=== PATIENT | female | born 1980 | race Caucasian/White ===

== ENCOUNTER 2024-04-14 19:39 | Emergency (ER) | payer OTHER, SELFPAY ==
[2024-04-14 19:49] VITALS: BP 117/73; PULSE 86; RESP 16; TEMP 36.6; O2SAT 100; BMI 28.3
--- NOTE | 2024-04-14 20:05 | ED.UPPEXIN ---
HPI - Extremity Injury (Upper) General Time Seen by Provider: 20:05 Date Seen: 04/14/24 Chief Complaint: Extremity Pain/Injury, Upper Stated Complaint: tendonitis Time Seen by Provider: 04/14/24 19:39 Source: patient and RN notes reviewed Mode of arrival: ambulatory Limitations: no limitations History of Present Illness HPI narrative: This 44-year-old female is coming to the ER with right elbow pain. She has pain both on the inside and outside. She has had a history of tendinitis. She has been wearing an elbow strap but it does not seem to be helping. 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 No numbness tingling. No pain into the wrist. No trauma noted. complaint: injury to: right Related Data Previous Rx's ?Medication ?Instructions ?Recorded naproxen 500 mg tablet 500 mg PO BID #20 tabs 04/14/24 Review of Systems Narrative: As per HPI. PFSH PFSH Social History Smoking Status: Current every day smoker What tobacco products do you use: cigarettes Do you use any of these nicotine containing products: None Second hand tobacco smoke exposure: No How often do you have a drink containing alcohol: 2-4 times a month How many standard drinks containing alcohol do you have on a typical day: 1 or 2 AUDIT-C Alcohol total score: 2 Non-prescribed substance use: denies use service: No Exam Const: Vital Signs, click to edit/add: Vital Signs - 24 hr 04/14/24 19:49 Temperature 97.8 F Pulse Rate [Right Radial] 86 Respiratory Rate 16 Blood Pressure [Le ft Upper Arm] 117/73 Pulse Oximetry 100 Oxygen Delivery Me thod Room Air This 44-year-old female is alert, interactive, no apparent distress. On inspection of her right arm, no noted swelling, ecchymosis or rash. She has full range of motion about the shoulder, full flexion extension supination pronation at the elbow. Wrist is fully mobile. Hand bridge saw operator strength is 5/5 and symmetric. She has 5/5 preserved wrist flexion and extension but the resisted wrist extension does give her increased pain over the lateral epicondyle. She has some point tenderness over both the medial and lateral epicondyle although she is definitely more tender and painful with examination over the lateral portion of the elbow. Bicipital groove nontender, can palpate the biceps tendon, resisted biceps testing does not cause her significant discomfort. Neurovascular is intact. Documenting provider has reviewed patient's vital signs: yes Course Course ED Course: Discussed with Kiera that she certainly seems to have component of both medial and lateral epicondylitis or golfer's and tennis elbow respectively. She needs to continue wearing the elbow strap. We do not have these here and thus I am glad she has 1. Will pull her off work tonight and tomorrow night. We discussed that it is the repetitive activity without appropriate rest that is causing the tendinitis. She very well should go to physical therapy as they can help resolve this, will need to get a referral from her primary care provider or clinic she goes to. Will give her scheduled course of NSAIDs. She needs to minimize activities that are bothersome, also recommend ice. Vital Signs Vital signs: Initial Vital Signs Temperature 97.8 F 04/14/24 19:49 Temperature Source Temporal Artery Scan 04/14/24 19:49 Pulse Rate 86 04/14/24 19:49 Pulse Rhythm Regular 04/14/24 19:49 Respiratory Rate 16 04/14/24 19:49 Blood Pressure 117/73 04/14/24 19:49 Blood Pressure Mean 87 04/14/24 19:49 Pulse Oximetry 100 04/14/24 19:49 Oxygen Delivery Method Room Air 04/14/24 19:49 Vital Signs Temperature 97.8 F 04/14/24 19:49 Pulse Rate 86 04/14/24 19:49 Respiratory Rate 16 04/14/24 19:49 Blood Pressure 117/73 04/14/24 19:49 Pulse Oximetry 100 04/14/24 19:49 Oxygen Delivery Method Room Air 04/14/24 19:49 Temperature 97.8 F 04/14/24 19:49 Pulse Rate 86 04/14/24 19:49 Respiratory Rate 16 04/14/24 19:49 Blood Pressure 117/73 04/14/24 19:49 Pulse Oximetry 100 04/14/24 19:49 Oxygen Delivery Method Room Air 04/14/24 19:49 Discharge Plan Discharge Clinical Impression: Right tennis elbow, Golfers elbow of right upper extremity Patient Disposition: Home, Self-Care Condition: Stable Instructions: Tennis Elbow (ED) Additional Instructions: Continue wearing the elbow strap. You do need to get scheduled for a clinic follow-up next week and get a referral to physical therapy. Can try ice to help decrease pain. Have written a course of NSAIDs for you, please pick them up from the pharmacy and take as prescribed, recommend taking with food to protect your stomach. Can also use Tylenol 1000 mg 3 times a day for additional pain control. Need to limit activities that are causing the ongoing overuse syndrome of your elbow. Recommend minimizing lifting at this point, no repetitive use of the elbow that aggravates your symptoms. May ultimately need to see orthopedics if conservative management is not helping, referral would have to come through clinic. Activity Level: Activity as Tolerated Prescriptions: New naproxen 500 mg tablet 500 mg PO BID Qty: 20 0RF Follow Up/Referrals: Karis Raya MD [Primary Care Provider] - Stand Alone Forms: [employer] Info Instructions
== END 2024-04-14 21:00 | disposition home or self-care (01) ==
LOC: ED 20:36
PROVIDERS: Emergency Provider Family Medicine; PCP Family Medicine
DX: M77.01 Medial epicondylitis, right elbow (principal)
CPT/HCPCS: 99282; 99283

== ENCOUNTER 2024-11-04 10:27 | Emergency (ER) | payer OTHER, SELFPAY ==
--- OUTSIDE RECORDS SUMMARY | 2024-11-04 10:29 | XMS_ITS | Encounter Summary ---
Author Organization [facility] Address [address], [place] [address] Care Team Providers Care Plant Pathology Teacher Name Role Phone No Primary/Referring, Phy Primary Care Provider Unavailable Encounter Details Date Type Department Care Team (Late st Contact Info) Description 07/01/2012 Consent for Procedure/Treatme nt [facility] Department INFORMED CONSENT RECORD Social History Tobacco Use Types Packs/Day Years Used Date Smoking Tobacco: Every Day Cigarettes Smokeless Tobacco: Never Alcohol Use Standard Drinks/Week Comments Not Asked 0 (1 standard drink = 0.6 oz pur e alcohol) Comments Unknown Sex and Gender Information Value Date Recorded Sex Assigned at Not on file Legal Sex Female 4:58 AM CDT Gender Identity Not on file Sexual Orientation Not on file documented as of this encounter Progress Notes * [facility], PROVIDER - 07/01/2012 12:00 AM CST AINABILITY COORDINATOR documented in this encounter Plan of Treatment Not on file documented as of this encounter Visit Diagnoses Not on filedocumented in this encounter Care Teams Plant Pathology Teacher Relationship Specialty Start Date End Date No Primary/Referring, Phy PCP - General 06/25/12 documented as of this encounter
--- OUTSIDE RECORDS SUMMARY | 2024-11-04 10:29 | XMS_ITS | Encounter Summary ---
Author Organization [facility] Address [address] [address] Care Team Providers Care Beehive Kiln Supervisor Name Role Phone No Primary/Referring, Phy Primary Care Provider Unavailable Encounter Details Date Type Department Care Team (Late st Contact Info) Description 07/06/2012 Correspondence External to External, [place] [address] PT NOTE Social History Tobacco Use Types Packs/Day Years [...] as of this encounter Progress Notes * External, Provider - 07/06/2012 12:00 AM CST TH PROGRAM DIRECTOR documented in this encounter Plan of Treatment Not on file documented as of this encounter Visit Diagnoses Not on filedocumented in this encounter Care Teams Beehive Kiln Supervisor Relationship Specialty Start Date End Date No Primary/Referring, Phy PCP - General 06/25/12 documented as of this encounter
--- OUTSIDE RECORDS SUMMARY | 2024-11-04 10:29 | XMS_ITS | Encounter Summary ---
Author Organization [facility] [address] [address] Care Team Providers Care Fishing Hand Name Role Phone No Primary/Referring, Phy Primary Care Provider Unavailable Encounter Details Date Type Department Care Team (Late st Contact Info) Description 07/20/2012 Correspondence [facility] [address] [place] [id number] Filipe Sanchez MD SHORT TERM DISABILITY CLAIM FORM Social History Tobacco Use Types Packs/Day Years [...] as of this encounter Progress Notes * Filipe Sanchez MD - 07/20/2012 12:00 AM CST documented in this encounter Plan of Treatment Not on file documented as of this encounter Visit Diagnoses Not on filedocumented in this encounter Care Teams Fishing Hand Relationship Specialty Start Date End Date No Primary/Referring, Phy PCP - General 06/25/12 documented as of this encounter
--- OUTSIDE RECORDS SUMMARY | 2024-11-04 10:29 | XMS_ITS | Encounter Summary ---
Author Organization [facility] [address] [address] Care Team Providers Care Model Maker Plastic Name Role Phone No Primary/Referring, Phy Primary Care Provider Unavailable Encounter Details Date Type Department Care Team (Late st Contact Info) Description 08/11/2012 Correspondence [facility] [address] [place] [id number] Kiera Taveras PA-C [address] [place] [phone] DISABILITY PROGRESS REPORT Social History Tobacco Use Types Packs/Day Years Used Date Smoking Tobacco: Every Day Cigarettes Smokeless Tobacco: Never Alcohol Use Standard Drinks/Week Comments No 0 (1 standard drink = 0.6 oz pur e alcohol) Comments Unknown Sex and Gender Information Value Date Recorded Sex Assigned at Not on file Legal Sex Female 4:58 AM CDT Gender Identity Not on file Sexual Orientation Not on file documented as of this encounter Progress Notes * Kiera Callahan PA-C - 08/11/2012 12:00 AM CST INE SPECIALIST documented in this encounter Plan of Treatment Not on file documented as of this encounter Visit Diagnoses Not on filedocumented in this encounter Care Teams Model Maker Plastic Relationship Specialty Start Date End Date No Primary/Referring, Phy PCP - General 06/25/12 documented as of this encounter
--- OUTSIDE RECORDS SUMMARY | 2024-11-04 10:30 | XMS_ITS | Encounter Summary ---
Author Organization [facility] Address [address], [place] [address] Care Team Providers Care Rod Buster Name Role Phone No Primary/Referring, Phy Primary Care Provider Unavailable Encounter Details Date Type Department Care Team (Late st Contact Info) Description 06/26/2012 Consent for Procedure/Treatme nt [facility] Department INFORMED CONSENT RECORD Social History Tobacco Use Types Packs/Day Years Used Date Smoking Tobacco: Never Assessed Comments Unknown Sex and Gender Information Value Date Recorded Sex Assigned at Not on file Legal Sex Female 4:58 AM CDT Gender Identity Not on file Sexual Orientation Not on file documented as of this encounter Progress Notes * [facility], PROVIDER - 06/26/2012 12:00 AM CST DING TECH documented in this encounter Plan of Treatment Not on file documented as of this encounter Visit Diagnoses Not on filedocumented in this encounter Care Teams Rod Buster Relationship Specialty Start Date End Date No Primary/Referring, Phy PCP - General 06/25/12 documented as of this encounter
--- OUTSIDE RECORDS SUMMARY | 2024-11-04 10:30 | XMS_ITS | Continuity of Care Document ---
Author Organization [place] - [facility] Address [address] [facility] [address] [place] [address] Assessment Encounter Date Assessment Date Assessment LastModified by Organization Details LastModified Time 09/21/2024 09/21/2024 Cold sore - recurring condition with patient-repor aniya multiple outbreaks, latest occurring within 30 days. - Advised patient to visit primary care doctor for further evaluation if the prescribed treatment isn't effective. - Discussion about possibly switching to Acyclovir tablet if the current medication is ineffective. - Prescribed Acyclovir tablet as requested by the patient. Not available 09/21/2024 17:24:35 Plan of Treatment Reminders Order Date Submit Date Provider Last Modified By Organization Details Last Modified Time Details Appointments None recorded. Lab None recorded. Referral None recorded. Procedures None recorded. Surgeries None recorded. Imaging None recorded. Medication Orders acyclovir 400 mg tablet 2024 025 cvalencia 42 [facility] [address] [place] [address], [address], 18:43:50 Patient TargetsNo targets recorded. Patient Instructions Encounter Date Encounter Id Patient Instructions Last Modified By Organization Details Last Modified Time 09/21/2024 [id number] cold sores: care instructions Not available 09/21/2024 17:26:54 Summary of Today's Visit: During our visit, we addressed your ongoing issue with recurrent cold sores. You've experienced these outbreaks frequently, with two occurrences in the past 30 days. Previously, you were provided with a treatment plan that involved a daily dosage of 500 mg, but you recently received a different prescription that didn't improve your symptoms. Proper Cold Sore Management: For recurrent cold sores, the standard treatment typically involves taking 2,000 mg twice daily for recurrent. It's essential to adhere to this evidence-based protocol to ensure effectiveness. If the current prescription isn't providing relief, it may be time to consult your primary care doctor for further evaluation and to consider if resistance is developing. Acyclovir Prescription: We've decided to try acyclovir in tablet form for your cold sores, as it might be more effective for you. This medication is another option you can consider, although it may be a bit more costly since it's often not covered by insurance. We've sent the prescription to your preferred pharmacy, [facility] at [address] [place] [address]. Follow-Up Actions: - Take the prescribed acyclovir tablets as directed. - Schedule a visit with your primary care doctor to explore long-term management strategies and assess potential resistance to current medications. - Contact your healthcare provider if your symptoms do not improve or if you have any further questions. Not available 09/21/2024 17:26:46 Reason for Referral None Reported. Problems Name Problem SNOMED Code Status Onset Date Resolution Date Notes Provider Name and Address Organization Details Recorded Time Premenstr ual dysphoric disorder 524105 Active Celsa Boo MD [address], [address] [place] [address], [place] [facility] 5 09:10:07 Acne 56300302 Active hormone adult Celsa Boo MD [address], [address], [place] [facility] 5 09:10:57 Seasonal allergic rhinitis [id number] Carolin Boo MD [address], [address], [place] [facility] 5 09:10:12 Prediabet es 537840709 Active Celsa Boo MD [address], [address] [place] [address], [place] [facility] 5 09:09:43 Obesity [id number] Carolin Boo MD [address], [address], [place] [facility] 5 09:11:04 Nicotine dependenc e 86182361 Active Celsa Boo MD 1 [facility] [address], [place], [address], [place] [facility] 5 09:11:10 Syncope 190761156 Active Fainting when stretches - since was a teenager Celsa Boo MD 1 [facility] [address], [place], [address], [place] [facility] 5 09:10:54 Anxiety 61654537 Active Celsa Boo MD 1 [facility] [address], [place], [address], [place] [facility] 5 09:10:00 Problem Notes None recorded. Medical Equipment None Reported. Allergies No known drug allergies Medications Name Sig Start Date Stop Date Status Note LastModified by Organization Details LastModified Time prednison e 20 mg tablet 07/26 completed Not Available Not Available Not Available acyclovir 400 mg tablet TAKE 1 TABLET BY MOUTH EVERY 8 HOURS FOR 5 DAYS 2024 active Not Available Not Available Not Avai lable ciclopiro x 8 % topical solution Apply to adjacent skin and affected nails daily. Remove with alcohol every 7 days. 2024 active [NOT TAKING] Not Available Not Available Not Available benzonata te 100 mg capsule 07/26 completed Not Available Not Available Not Available ibuprofen 200 mg tablet 06/20 completed ADDED BY PATIENT: if needed for tendonit is pain not every day Not Available Not Available Not Available Valtrex 1 gram tablet Take 2 tablets every 12 hours by oral route for 1 day. 06/23 completed [NOT TAKING] Not Available Not Available Not Available estradiol 0.01% (0.1 mg/gram) vaginal cream 01/14 completed Not Available Not Available Not Available albuterol sulfate HFA 90 mcg/actua tion aerosol inhaler 07/26 completed Not Available Not Available Not Available ipratropi um bromide 42 mcg (0.06 %) nasal spray 06/16 completed Not Available Not Available Not Available dextromet horphan HBr 07/26 completed Not Available Not Available Not Available phentermi ne 01/14 completed Not Available Not Available Not Available Claritin 06/16 completed Not Available Not Available Not Available Tylenol 06/20 completed ADDED BY PATIENT: 1000mg 2x day Not Available Not Available Not Available levocetir izine 5 mg tablet 06/16 completed Not Available Not Available Not Available Xyzal active Not Available Not Availa ble Not Available UNLISTED MEDICATIO N [Migrate d medicati on name:] Semaglut john:: 05/30 completed [NOT TAKING] Not Available Not Available Not Available UNLISTED MEDICATIO N [Migrate d medicati on name:] Valicycl ovir:: 05/30 completed Not Available Not Available Not Available UNLISTED MEDICATIO N [Migrate d medicati on name:] Mucinex blue:: 06/19 completed Not Available Not Available Not Available UNLISTED MEDICATIO N [Migrate d medicati on name:] Tylenol: : 02/01 completed Not Available Not Available Not Available UNLISTED MEDICATIO N [Migrate d medicati on name:] Pataday Once Daily Relief ophthalm ic (eye):: 06/23 completed [NOT TAKING] Not Available Not Available Not Available UNLISTED MEDICATIO N [Migrate d medicati on name:] Benadryl :: 02/01 completed Not Available Not Available Not Available Pataday Once Daily Relief 0.7 % eye drops active ADDED BY PATIENT: once a day Not Available Not Available Not Available Ryaltris 665 mcg-25 mcg/spray nasal spray 02/01 completed Not Available Not Available Not Available Vitals None Recorded Social History Question Answer Notes LastModified by Organizat ion Details LastModified Time Tobacco Smoking Status Current Every Day Smoker Lisa Pitt null, [place] [facility] 06/21/2024 16:09:14 What Is Your Level Of Caffeine Consumption? Moderate 1 Energy Drink Daily [email or web address] Information not available 06/23/2024 Who Is Your Employer? [employer] Information not available 06/23/2024 How Many Times In The Past Year Have You Used An Illegal Drug Or Used A Prescription Medication For Nonmedical Reasons? 0 [email or web address] Information not available 06/21/2024 How Many Children Do You Have? 0 [email or web address] Information not available 06/23/2024 What Is Your Relationship Status? Domestic Partner [email or web address] Information not available 06/23/2024 Are You Sexually Active? Yes Information not available 06/23/2024 How Much Tobacco Do You Smoke? 0.5 PPD [email or web address] Information not available 06/21/2024 How Many Years Have You Smoked Tobacco? 25 [email or web address] Information not available 06/21/2024 Sex: Unknown Functional Status Question Answer Note LastModified by Organizat ion Details LastModified Time Do you use any illicit or recreational drugs? No Information not available 06/21/2024 Do you or have you ever used any other forms of tobacco or nicotine? No [email or web address] Information not available 06/23/2024 What is your level of alcohol consumption? None [email or web address] Information not available 06/23/2024 Are you currently employed? Yes [email or web address] Information not available 06/23/2024 What is your occupation? [employer] [email or web address] Information not available 06/23/2024 Mental Status None recorded. Family History Relationship Description Onset Age of this Age Resolved Age Notes LastModified by Organization Details LastModified Time Mother Depressive disorder Not available 2024 16:05:27 Mother Asthma [email or web address] Not available 06/21/2024 16:05:41 Brother Depressive disorder Not available 2024 16:05:27 Brother Asthma Not available 06/21/2024 16:05:41 Father Depressive disorder [email or web address] Not available 2024 16:05:27 Medical History No medical history recorded. Gynecological HistoryNo gynecological history recorded. Obstetrics History GPAL:G 0 P 0 0 0 0 Past Encounters Encounter ID Performer Location Encounter Start Date Encounter Closed Date Diagnosis/Indication Diagnosis SNOMED-CT Code Diagnosis ICD10 Code Diagnosis Note [id number] NORMA Rincon [facility] [address] [address] 09/21/2024 17:13:02 09/21/2024 17:30:49 Recurrent herpes simplex labialis 194041865 B00.1 Health Concerns Section Related Observation LastModified by Organization Detai ls LastModified Time None Recorded Concern Status LastModified by Organization Details LastModified Time None Recorded Payers Encounter Date Sequence Insurance Name Policy Number Policy Xiao Covered Member ID Xiao Member ID Guarantor Name 09/21/2024 1 [facility] [id number] Kiera Macario [id number] Kiera Macario 09/21/2024 2 *SELF PAY* [id number] Kiera Macario [id number] Kiera Macario Notes Date Note Type Note Provider Name and Address Organization Details Recorded Time 09/21/2024 text/html Call connected , pt greeted,pt name, and location verified. Telemedicine and scribe consent obtained. Clinician attest she is physically located in [facility] at the time of the visit. CC: Cold sore outbreak HPI: The patient reports experiencing a cold sore outbreak, marking the second occurrence within the past 30 days. Previously, the patient was on a daily regimen of a 500 mg medication but was recently prescribed a new treatment plan involving four tablets per outbreak. The patient administered this treatment today but noticed no improvement in symptoms. The patient describes previous cold sore episodes as recurrent, indicating a long history of these outbreaks. During previous episodes, the patient found the 500 mg tablets taken daily to be effective. Currently, the lack of symptom relief from the new prescribed regimen leads to frustration and concern about building resistance to the medication. The patient denies any new medication allergies. They inquired about alternative treatments including medication tablets rather than the cream. The patient did not report any exacerbating or alleviating factors for the cold sore apart from discussing medication effectiveness. NORMA Rincon 1 [facility] [address], [place], [address], [facility] 09/21/2024 17:26:56 OBGyn Episode No OBEpisode recorded.
--- OUTSIDE RECORDS SUMMARY | 2024-11-04 10:30 | XMS_ITS | Clinical Summary ---
[facility] Organization [facility] Address [address], [place] [address] Care Team Providers Care Ice Cream Van Vendor Name Role Phone No Primary/Referring, Phy Primary Care Provider Unavailable Source Comments You are receiving this document as you are listed as the primary care provider,follow-up provider, or the patient has been referred to you for consultation.This is in compliance with the Medicare and[facility] EHR Incentive Program,which states Providers who transition their patient to another setting of careor provider of care or refers their patient to another provider of care shouldprovide summary care record for each transition of care or referral. [employer] Medications acetaminophen 650 MG TABSIndications: Pain Take 650 mg by mouth every 6 hours. Indications : Pain 100 Tab 0 06/29/2012 Active Active Problems Problem Noted Date Diagnosed Date Regular astigmatism of both eyes 11/04/2017 Pes planus 06/28/2013 Tobacco abuse 06/28/2013 Tibial plateau fracture 06/30/2012 Acne 10/02/2010 Immunizations Immunization Administration Dates Next Due Flu Vac (3+ yrs) 02/04/2011,03/11/2010 Flu Vac (6-35 mo) 02/04/2011,03/11/2010 Influenza (Fluzone 0.25, 6-35 mos) 02/26/2013 Influenza IIV4 (Quadrivalent ) 0.5mL (69788) 02/26/2013 Influenza, Unspecified Formulation 01/12/2019 PPSV23 (Pneumovax) 07/01/2012(Deferred: Patient Refused) Td 01/20/1999 Tdap 08/26/2012 Family History Medical History Relation Name Comments Good Health Father Good Health Mother Allergies Brother 2 Asthma Brother 3 Relation Name Status Comments Father Alive Mother Alive Brother 1 Alive Brother 2 Brother 3 Sister Alive Social History Tobacco Use Types Packs/Day Years Used Date Smoking Tobacco: Former Cigarettes Q uit: 02/12/2019 Smokeless Tobacco: Never Alcohol Use Standard Drinks/Week Comments No 0 (1 standard drink = 0.6 oz pur e alcohol) Comments No Sex and Gender Information Value Date Recorded Sex Assigned at Not on file Legal Sex Female 4:58 AM CDT Gender Identity Not on file Sexual Orientation Not on file Last Filed Vital Signs Vital Sign Reading Time Taken Comments Blood Pressure 105/62 07/14/2012 9:26 AM KINESEOLOGIST Pulse 84 07/14/2012 9:26 AM KINESEOLOGIST Temperature 36.9 C (98.4 F) 07/05/2012 4:00 PM KINESEOLOGIST Respiratory Rate 16 07/05/2012 4:00 PM KINESEOLOGIST Oxygen Saturation 97% 07/05/2012 4:00 PM KINESEOLOGIST Inhaled Oxygen Concentration - - Weight 61.2 kg (135 lb) 07/01/2012 9:05 AM KINESEOLOGIST Height 157.5 cm (5' 2) 07/01/2012 9:05 AM KINESEOLOGIST Body Mass Index 24.69 07/01/2012 9:05 AM KINESEOLOGIST Plan of Treatment Health Maintenance Due Date Last Done Comments Hep C Screening (Preventive Services) 1982 Mammogram 1982 HIV Screening (Preventive Services) 1998 HepB Vaccine (1) 2001 Cervical Cancer Screening Due 11/19/2009 11/18/2009 Adult Preventive Visit 11/19/2011 11/18/2009 DTaP/Tdap/Td Vaccine (3 - Tdap) 08/26/2022 08/26/2012, 01/20/1999 COVID-19 Vaccine ( - season) 2024 Influenza Vaccine (Season Ended) 2025 01/12/2019, 02/26/2013, 02/26/2013, Additional history exists Zoster/Shingles Vaccine (1 of 2) 2032 HPV Vaccine Aged Out No longer eligi ble based on patient's age to complete this topic HepA Vaccine Aged Out No longer eligi ble based on patient's age to complete this topic Hib Vaccine Aged Out No longer eligi ble based on patient's age to complete this topic IPV (Polio) Vaccine Aged Out No longe r eligible based on patient's age to complete this topic MCV4 Vaccine Aged Out No longer eligi ble based on patient's age to complete this topic Meningococcal B Vaccine Aged Out No l onger eligible based on patient's age to complete this topic Pneumococcal Vaccine Aged Out No long er eligible based on patient's age to complete this topic Medical Devices Implanted Type Area Sample Wrapper Device Identifier Shelf Expiration Date Model / Serial / Lot Ots [id number] 15cc Canc Chips [employer] TIBIAL PLATEAU [employer] 08/11/2016 [id number] / OTS [id number] / OTS [id number] Scr Schanz Sfdr Ti [id number] - [id number] Implanted:Qty : 2 on 06/25/2012 by Jeff Hurtado MD at [facility] DEVICE Left: TIBIA MIDSHAFT [employer] [place] 494.784 / / Scr Schanz Sfdr Ti 5.5s710-81 - [id number] Implanted:Qty : 2 on 06/25/2012 by Jeff Hurtado MD at [facility] DEVICE Left: TIBIA MIDSHAFT [employer] 494.785 / / Scr Lk Sfdr Ti 5.0x65 - [id number] Implanted:Qty : 2 on 07/01/2012 by Filipe Sanchez MD at [facility] DEVICE Left: TIBIAL PLATEAU [employer] 422.395 / / Plt Dist Fem Lt 235mm 9h - [id number] Implanted:Qty : 1 on 07/01/2012 by Filipe Sanchez MD at [facility] DEVICE Left: TIBIAL PLATEAU [employer] 422.345 / / Scr Terry Sftp Ss 3.5x65 F-Thrd - [id number] Implanted:Qty : 2 on 07/01/2012 by Filipe Sanchez MD at [facility] DEVICE Left: TIBIAL PLATEAU [employer] 204.865 / / Scr Terry Sftp Ss 3.5x60 F-Thrd - [id number] Implanted:Qty : 1 on 07/01/2012 by Filipe Sanchez MD at [facility] DEVICE Left: TIBIAL PLATEAU [employer] 204.860 / / Scr Lk Sfdr Ti 5.0x18 - [id number] Implanted:Qty : 3 on 07/01/2012 by Filipe Sanchez MD at [facility] DEVICE Left: TIBIA MIDSHAFT [employer] 422.391 / / Scr Lk Sfdr Ti 5.0x26 - [id number] Implanted:Qty : 1 on 07/01/2012 by Filipe Sanchez MD at [facility] DEVICE Left: TIBIA PROXIMAL [employer] 422.392 / / Scr Lk Sfdr Ti 5.0x40 - [id number] Implanted:Qty : 2 on 07/01/2012 by Filipe Sanchez MD at [facility] DEVICE Left: TIBIAL PLATEAU [employer] 422.393 / / Scr Lk Sfdr Ti 5.0x55 - [id number] Implanted:Qty : 1 on 07/01/2012 by Filipe Sanchez MD at [facility] DEVICE Left: TIBIAL PLATEAU [employer] 422.394 / / Procedures Procedure Name Priority Date/Time Associated Diagnosis Comments PAP TEST, ROUTINE Routine 11/18/2009 10: 00 AM CDT from Last 3 Months or Most Recently Relevant to Health Maintenance Results * PAP TEST, ROUTINE (11/18/2009 10:00 AM CDT) Cytology, Pap (NOTE) Centrifuge Separator Tender Cytology Report Patient Name: BELKIS WAGNER Taken: 11/18/2009 Received: 11/21/2009 Reported: 11/27/2009 Physician(s): CIERRA LOUIS ([id number]) Source of Specimen Liquid routine Pap, cervical/endocervi collin: Specimen Adequacy Satisfactory for evaluation. Endocervical component present. Final Cytologic Interpretation/Res ult NEGATIVE FOR INTRAEPITHELIAL LESION OR MALIGNANCY (NILM) Other Cytologic Findings Inflammation dinh/11/27/2009 Electronically Signed Out By Layne MARTÍNEZ(ASCP) Layne MARTÍNEZ(ASCP) Pap Smear History Date of Last Menstrual Period: 10/30/09 [facility] 11/18/2009 10:0 0 AM CDT 11/21/2009 9:59 AM CDT us Cierra Louis GRADING MACHINE OPERATOR, CERTIFIED MEDICAL AIDE LAB_1 Final Re sult [facility] [address] [place] [phone] from Last 3 Months or Most Recently Relevant to Health Maintenance Insurance [employer] Advance Directives * Full Code (Latest Code Status on File) Date Activated Date Inactivated Comments 07/01/2012 2:20 PM 07/05/2012 8:20 PM * Full Code Date Activated Date Inactivated Comments 06/26/2012 3:01 AM 06/29/2012 4:10 PM * Full Code Date Activated Date Inactivated Comments 06/25/2012 1:09 PM 06/26/2012 3:01 AM * Full Code Date Activated Date Inactivated Comments 06/25/2012 12:08 PM 06/25/2012 1:09 PM Care Teams Ice Cream Van Vendor Relationship Specialty Start Date End Date No Primary/Referring, Phy PCP - General 06/25/12
--- OUTSIDE RECORDS SUMMARY | 2024-11-04 10:30 | XMS_ITS | Encounter Summary ---
Author Organization [facility] [address], [place] [address] Care Team Providers Care Manufacturing Controls Engineer Name Role Phone No Primary/Referring, Phy Primary Care Provider Unavailable Encounter Details Date Type Department Care Team (Late st Contact Info) Description 10/28/2012 Correspondence [facility] Orthopedics [address] [place] [id number] Filipe Sanchez MD DISABILITY PROGRESS REPORT Social History Tobacco Use [...] Progress Notes * Filipe Sanchez MD - 10/28/2012 12:00 AM CDT documented in this encounter Plan of Treatment Not on file documented as of this encounter Visit Diagnoses Not on filedocumented in this encounter Care Teams Manufacturing Controls Engineer Relationship Specialty Start Date End Date No Primary/Referring, Phy PCP - General 06/25/12 documented as of this encounter
--- OUTSIDE RECORDS SUMMARY | 2024-11-04 10:30 | XMS_ITS | Clinical Summary ---
Author Organization [facility] Address [address] [place] [address] Care Team Providers Care Trestleman Name Role Phone Ghazala Pulido Primary Care Provider [phone] Allergies No known active allergies Medications valACYclovir (VALTREX) 500 mg tablet TAKE 1 TABLET BY MOUTH ONCE A DAY TO PREVENT COLD SORES 2 Active Retin-A 0.05 % 0.05 % cream APPLY A PEA SIZED AMOUNT TO THE ENTIRE FACE AT BEDTIME TWICE WEEKLY - INCREASE TO NIGHTLY TOLERATED - FOLLOW WITH MOISTURIZER 3 Active phentermine (ADIPEX-P) 37.5 mg tabletIndication s:Pre-diabetes,C lass 1 obesity with body mass index (BMI) of 32.0 to 32.9 in adult, unspecified obesity type, unspecified whether serious comorbidity present Take 1 Tablet (37.5 mg) by mouth once daily before a meal. 30 Tablet 1 3 Active Active Problems Problem Noted Date Diagnosed Date Anxiety 12/28/2023 Class 1 obesity with body ma ss index (BMI) of 32.0 to 32.9 in adult 08/28/2022 Pre-diabetes 08/17/2022 Regular astigmatism of both eyes 11/04/2017 Tobacco abuse 06/28/2013 Pes planus 06/28/2013 Immunizations Immunization Administration Dates Next Due Influenza Virus, Unspecified 01/12/2019 Influenza, IIV3 (Age 6-35 mos) 02/04/2011,2009 Influenza, IIV3 (Age >=3 years) 02/04/2011 Influenza, IIV4 01/12/2019,02/26/2013 Influenza, IIV4 (Age 6-35 Mos) 02/26/2013 Td (Age >=7 Years) 01/20/1999 Tdap 08/26/2012 Family History Medical History Relation Name Comments Allergies Brother Asthma Brother Good Health Father limited hx known Good Health Mother Adopted Cancer-breast No Family History Cancer-colon No Family History Cancer-ovarian No Family History Diabetes No Family History Heart attack No Family History Hyperlipidemia No Family History Hypertension No Family History Stroke No Family History Thyroid Disease No Family History Relation Name Status Comments Brother Alive Father limited hx known Alive Mother Adopted Alive Sister Alive Social History Tobacco Use Types Packs/Day Years Used Date Smoking Tobacco: Every Day Cigarettes 0.5 13.4 Started: 06/14/2011 Smokeless Tobacco: Never Tobacco Cessation:Ready to Q uit: Not Asked; Counseling Given: Not Answered Alcohol Use Standard Drinks/Week Comments No 0 (1 standard drink = 0.6 oz pur e alcohol) PHQ-2 Answer Date Recorded PHQ-2 TOTAL SCORE 2 11/10/2022 Social Connections Answer Date Recorded Frequency of Communication with Friends and Fami ly 0 09/25/2022 Financial Resource Strain Answer Date R ecorded Difficulty of Paying Living Expenses 3 09/25/2022 Difficulty of Paying Living Expenses Not on file 09/25/2022 Food Insecurity Answer Date Recorded Worried About Running Out of Food in the Last Ye ar 1 09/25/2022 Transportation Needs Answer Date Record ed Lack of Transportation (Medical) 1 09/25/2022 Housing Stability Answer Date Recorded Unable to Pay for Housing in the Last Year 1 09/25/2022 Comments No Sex and Gender Information Value Date Recorded Sex Assigned at Not on file Legal Sex Female 5:43 AM ASSESSOR Gender Identity Not on file Sexual Orientation Not on file Occupation Industry Job Start Date Job End Date Not on file Not on file Not on file Not on file Obstetrics History Last Filed Vital Signs Vital Sign Reading Time Taken Comments Blood Pressure 102/60 12/22/2023 2:25 PM CDT Pulse 96 12/22/2023 2:25 PM CDT Temperature 37.1 C (98.8 F) 12/19/2023 12:20 PM CDT Respiratory Rate 18 12/19/2023 12:20 PM CDT Oxygen Saturation 99% 12/19/2023 12:20 PM CDT Inhaled Oxygen Concentration - - Weight 77.1 kg (170 lb) 12/22/2023 2:25 PM CDT Height 157.5 cm (5' 2) 12/22/2023 2:25 PM CDT Body Mass Index 31.09 12/22/2023 2:25 PM CDT Plan of Treatment Health Maintenance Due Date Last Done Comments HIV for age 15-65 1997 Hepatitis C screening for ag e 18-79 2000 Hepatitis B series for 19+ ( 1 of 3 - 19+ 3-dose series) 2001 Pneumococcal series for age 6-49 (1 of 2 - PCV) 2001 Pap test for age 21-65 01/16/2020 7, 08/26/2012, 02/26/2005 Tetanus booster 08/26/2022 08/26/2012, 01/20/1999 Depression screening for age 12+ 11/11/2023 11/10/2022, 09/09/2022, 08/28/2022, Additional history exists COVID-19 vaccine series ( season) 2024 07/25/2020, 06/27/2020 BMI (ht and wt on same day) for age 18+ 12/21/2024 12/22/2023, 11/10/2022, 09/25/2022, Additional history exists Influenza Vaccine (Season Ended) 2025 01/12/2019, 01/12/2019, 02/26/2013, Additional history exists Tdap Completed 08/26/2012 Procedures Procedure Name Priority Date/Time Associated Diagnosis Comments INCIDENT RESPONSE SPECIALIST THIN PREP PAP SCREEN IMAGED Routine 01/15/2017 1:37 PM CDT Cervical cancer screening from Last 3 Months or Most Recently Relevant to Health Maintenance Results * INCIDENT RESPONSE SPECIALIST THIN PREP PAP SCREEN IMAGED (01/15/2017 1:37 PM CDT) Case Report Gynecologic Cytology Report Case: [id number] Authorizing Provider: Mily Mackey MD Collected: 01/15/2017 7718 Ordering Location: [facility] Received: 01/15/2017 1332 Clinic First Screen: Marnie Badillo Pathologist: Heidy Pascal MD Specimen: INCIDENT RESPONSE SPECIALIST ThinPrep Vial Screening, Cervical 01/25/2017 1:28 PM CDT [facility] INTERPRETATION/ RESULT NEGATIVE FOR INTRAEPITHELIAL LESION OR MALIGNANCY (NIL) (none) 01/25/2017 1:28 PM CDT [facility] at 1328 CDT OTHER NON-NEOPLASTIC FINDING(S) Reactive cellular changes associated with inflammation/repa ir Hyperkeratosis 01/25/2017 1:28 PM CDT [facility] SPECIMEN ADEQUACY Satisfactory for evaluation Endocervical component present 01/25/2017 1:28 PM CDT [facility] HPV REQUEST HPV if ASCUS 01/25/2017 1:28 PM CDT [facility] Date of LMP 12/24/2016 01/25/2017 1:28 PM CDT [facility] Last Pap Date 08/26/2016 01/25/2017 1:28 PM CDT [facility] Last Pap Result NIL 7 1:28 PM CDT [facility] Abnormal Pap or [place] Bx in last 5 years No 01/25/2017 1:28 PM CDT [facility] Menstrual Status Regular Periods 01/25/2017 1:28 PM CDT [facility] [place] Bx Done Today No 01/25/2017 1:28 PM CDT [facility] Additional Information None given 01/25/2017 1:28 PM CDT [facility] Automated Review Successful 01/25/2017 1:28 PM CDT [facility] Comment:Specimen processed s uccessfully by automated paste up artist device, ThinPrep Imaging System, [employer] Note The pap test is a screening technique, not a diagnostic procedure. It is used primarily to screen for squamous cancers and precursor lesions. Published studies have shown that it is subject to both false negative and false positive results. The pap test should not be used as the sole means to diagnose or exclude pre-malignant and malignant lesions. Interpreted at [facility] (Central Lab, [facility], [facility], [facility], [facility], [facility], [facility]) 01/25/2017 1:28 PM CDT [facility] Other (Cervical) 01/15/2017 1:37 PM CDT 01/15/2017 1:37 PM CDT us Mily Mackey MD PATHOLOGY/CYTOLOGY Final Re sult [facility] [address] [place] [address], [place] from Last 3 Months or Most Recently Relevant to Health Maintenance Insurance [facility] [employer]AR[employer] [address] [place] [phone] Care Teams Trestleman Relationship Specialty [place] [address] [address] [place], [place] [id number] PCP - General Family Practice 08/17/12
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
--- OUTSIDE RECORDS SUMMARY | 2024-11-04 10:30 | XMS_ITS | Encounter Summary ---
[facility] Organization [facility] [address], [place] [address] Care Team Providers Care Lab Associate Name Role Phone No Primary/Referring, Phy Primary Care Provider Unavailable Encounter Details Date Type Department Care Team (Late st Contact Info) Description 01/25/2013 Correspondence [facility] [address] [place] [id number] Kiera Taveras PA-C [address] [place] [phone] REPLACEMENT SERVICES DISABILITY REPORT Social History Tobacco Use Types Packs/Day [...] Progress Notes * Kiera Callahan PA-C - 01/25/2013 12:00 AM CDT documented in this encounter Plan of Treatment Not on file documented as of this encounter Visit Diagnoses Not on filedocumented in this encounter Care Teams Lab Associate Relationship Specialty Start Date End Date No Primary/Referring, Phy PCP - General 06/25/12 documented as of this encounter
--- OUTSIDE RECORDS SUMMARY | 2024-11-04 10:30 | XMS_ITS | Encounter Summary ---
Author Organization [facility] [address] [address] Care Team Providers Care X Ray Tech Name Role Phone No Primary/Referring, Phy Primary Care Provider Unavailable Encounter Details Date Type Department Care Team (Late st Contact Info) Description 02/10/2013 Correspondence [facility] [address] [place] [id number] Filipe Sanchez MD REPLACEMENT SERVICES DISABILITY REPORT Social History Tobacco [...] Progress Notes * Filipe Sanchez MD - 02/10/2013 12:00 AM CDT documented in this encounter Plan of Treatment Not on file documented as of this encounter Visit Diagnoses Not on filedocumented in this encounter Care Teams X Ray Tech Relationship Specialty Start Date End Date No Primary/Referring, Phy PCP - General 06/25/12 documented as of this encounter
--- OUTSIDE RECORDS SUMMARY | 2024-11-04 10:30 | XMS_ITS | Encounter Summary ---
Author Organization [facility] [address] [address] Care Team Providers Care Answering Service Agent Name Role Phone No Primary/Referring, Phy Primary Care Provider Unavailable Encounter Details Date Type Department Care Team (Late st Contact Info) Description 10/28/2012 Correspondence [facility] [address] [place] [id number] Filipe Sanchez MD FMLA Social History Tobacco Use Types Packs/Day Years [...] on filedocumented in this encounter Care Teams Answering Service Agent Relationship Specialty Start Date End Date No Primary/Referring, Phy PCP - General 06/25/12 documented as of this encounter
--- OUTSIDE RECORDS SUMMARY | 2024-11-04 10:30 | XMS_ITS | Encounter Summary ---
[facility] [address], [place] [address] Care Team Providers Care Urinalysis Technician Name Role Phone No Primary/Referring, Phy Primary Care Provider Unavailable Encounter Details Date Type Department Care Team (Late st Contact Info) Description 06/25/2012 Consent for Procedure/Treatme nt [facility] Department INFORMED CONSENT RECORD Social History Tobacco Use Types Packs/Day Years Used Date Smoking Tobacco: Never Assessed Comments Unknown Sex and Gender Information Value Date Recorded Sex Assigned at Not on file Legal Sex Female 4:58 AM CDT Gender Identity Not on file Sexual Orientation Not on file documented as of this encounter Progress Notes * [facility], PROVIDER - 06/25/2012 12:00 AM 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
--- OUTSIDE RECORDS SUMMARY | 2024-11-04 10:30 | XMS_ITS | Encounter Summary ---
Author Organization [facility] [address], [place] [address] Care Team Providers Care Counseling Center Manager Name Role Phone No Primary/Referring, Phy Primary Care Provider Unavailable Encounter Details Date Type Department Care Team (Late st Contact Info) Description 09/29/2012 Correspondence [facility] [address] [place] [phone] Filipe Sanchez MD FMLA Social History Tobacco [...] Progress Notes * Filipe Sanchez MD - 09/29/2012 12:00 AM CDT documented in this encounter Plan of Treatment Not on file documented as of this encounter Visit Diagnoses Not on filedocumented in this encounter Care Teams Counseling Center Manager Relationship Specialty Start Date End Date No Primary/Referring, Phy PCP - General 06/25/12 documented as of this encounter
[2024-11-04 10:33] VITALS: BP 116/79; PULSE 88; RESP 18; TEMP 36.8; O2SAT 99; BMI 29.1
--- NOTE | 2024-11-04 10:51 | CRLHL7_ITS ---
For Patients: As a result of the Cures Act, medical imaging exams and procedure reports are released immediately into your electronic medical record. You may view this report before your referring provider. If you have questions, please contact your health care provider. INDICATION: Fall onto right anterior ribs TECHNIQUE: Chest radiograph, Rib radiographs 3 views right COMPARISON: None FINDINGS: Mediastinum: The mediastinum is normal in appearance. The heart silhouette is normal in size and morphology. Lung: Both lungs are unremarkable in appearance. No sign of pleural effusion seen. No pneumothorax is identified. Ribs and bones: No definite acute rib fractures are identified in the visualized ribs. The remaining osseous structures are unremarkable for age. Trace dextroscoliosis noted in the mid thoracic spine. Soft tissue: Unremarkable. IMPRESSION: 1. No acute cardiopulmonary disease is seen. No acute rib injuries noted. Dictated by: Akash Stockton MD @ 11/04/2024 11:29:16 (Electronically Signed)
--- NOTE | 2024-11-04 10:51 | ED.GENADULT ---
HPI - General Adult General Chief complaint: Rib Pain Stated complaint: Slid Off Cart at work- Chest Pain Time Seen by Provider: 11/04/24 10:30 History of Present Illness HPI narrative: This 44-year-old female comes in with right lower anterior rib pain. 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 The pain is distinctly worse with certain movements and taking deep breaths. She arrives here with normal vital signs. Related Data Previous Rx's ?Medication ?Instructions ?Recorded ketorolac 10 mg tablet 10 mg PO TID 5 days #15 tabs 11/04/24 Allergies Allergy/AdvReac Type Severity Reaction Status Date / Time No Known Drug Allergies Allergy Verified 11/04/24 10:32 Review of Systems Status of ROS: Reports: 10 or more systems reviewed and unremarkable except as noted in History and below Narrative: Constitutional: No fevers, no weight gain or loss. Eyes: No discharge. No vision changes. HENT: No congestion, no sore throat, no ear pain. Cardiovascular: No chest pain, no palpitations. Respiratory: No shortness of breath, no wheezes, no cough. Gastrointestinal: No abdominal pain, no vomiting, no diarrhea. Genitourinary: No dysuria, no hematuria. Musculoskeletal: Normal range of motion. Skin: No rashes, no pruritis. Neurological: No dizziness, weakness, sensory change, speech change. Endo/Heme/Allergies: No bruising or bleeding. No polydipsia. Pysch: no suicidality, no anxiety, no insomnia. All other systems reviewed and are negative. PFSH PFSH Surgical History (Updated 04/18/24 @ 11:22 by Kierra Morales) History of knee surgery (2011) ?Z98.890 - Other specified postprocedural states (ICD-10) Family History (Updated 04/18/24 @ 11:23 by Kierra Morales) Mother Asthma Social History Smoking Status: Current every day smoker What tobacco products do you use: cigarettes Smoking packs per day: 0.5 Smoking cigarettes per day: 10.0 Do you use any of these nicotine containing products: None Second hand tobacco smoke exposure: No How often do you have a drink containing alcohol: never AUDIT-C Alcohol total score: 0 Non-prescribed substance use: denies use service: No Exam Narrative: Exam Narrative: Constitutional: Well-developed, well-nourished, no acute distress. HEENT: Normocephalic, atraumatic. Neck: Normal range of motion. Nontender. Supple. Heart: Regular. No murmurs. Normal rate. Intact distal pulses. Lungs: Clear to auscultation. No wheezes, rhonchi, or rales. Chest: Distinct pain below the right breast that is reproducible with deep breath and with palpating in this area. No external sign of injury. Abdomen: Normal bowel sounds. Nontender. No rebound tenderness. Genitalia: Deferred. Back: No midline tenderness. Normal range of motion. Extremities: Normal range of motion. No injury. Skin: Intact. No rash. Warm. No erythema or pallor. Neurologic: No altered sensation. No weakness. Alert and oriented. Psychiatric: No suicidality. No anxiety or depression. No insomnia. Nursing notes and vitals signs are reviewed. Const: Vital Signs, click to edit/add: Vital Signs - 24 hr 11/04/24 10:33 Temperature 98.2 F Pulse Rate [Pulse Oximeter] 88 Respiratory Rate 18 Blood Pressure [Ri ght Upper Arm] 116/79 Pulse Oximetry 99 Oxygen Delivery Me thod Room Air Course Vital Signs Vital signs: Initial Vital Signs Temperature 98.2 F 11/04/24 10:33 Temperature Source Temporal Artery Scan 11/04/24 10:33 Pulse Rate 88 11/04/24 10:33 Pulse Rhythm Regular 11/04/24 10:33 Respiratory Rate 18 11/04/24 10:33 Blood Pressure 116/79 11/04/24 10:33 Blood Pressure Mean 91 11/04/24 10:33 Blood Pressure Position Sitting 11/04/24 10:33 Pulse Oximetry 99 11/04/24 10:33 Oxygen Delivery Method Room Air 11/04/24 10:33 Vital Signs Temperature 98.2 F 11/04/24 10:33 Pulse Rate 88 11/04/24 10:33 Respiratory Rate 18 11/04/24 10:33 Blood Pressure 116/79 11/04/24 10:33 Pulse Oximetry 99 11/04/24 10:33 Oxygen Delivery Method Room Air 11/04/24 10:33 Temperature 98.2 F 11/04/24 10:33 Pulse Rate 88 11/04/24 10:33 Respiratory Rate 18 11/04/24 10:33 Blood Pressure 116/79 11/04/24 10:33 Pulse Oximetry 99 11/04/24 10:33 Oxygen Delivery Method Room Air 11/04/24 10:33 Medical Decision Making MDM Narrative Medical decision making narrative: This patient comes in reporting a rib injury as described above. Chest x-ray with rib detail is obtained and shows no sign of acute fracture or pulmonary injury. This is a work related injury. I did provide a return to work note and a prescription for Toradol. Imaging Data Chest x-ray: Radiologist's impression: No acute cardiopulmonary disease is seen. No acute rib injuries noted. Discharge Plan Discharge Clinical Impression: Contusion of rib on right side Patient Disposition: Home, Self-Care Condition: Unchanged Additional Instructions: Take medication as needed and indicated. Increase activity as tolerated. Follow up with MD return if worsening. Prescriptions: New ketorolac 10 mg tablet 10 mg PO TID 5 Days Qty: 15 0RF Follow Up/Referrals: Yovani Pugh MD [Staff Physician, Family Practice] Stand Alone Forms: [employer] Info Instructions
== END 2024-11-04 12:01 | disposition home or self-care (01) ==
PROVIDERS: Emergency Provider Emergency Medicine Emergency Medical Services
DX: S20.211A Contusion of right front wall of thorax, initial encounter (principal); V85.4XXA Person injured while boarding or alighting from special construction vehicle, initial encounter; Y99.0 Civilian activity done for income or pay
CPT/HCPCS: 71101; 99283; 99284